=== PATIENT | male | born 1995 | race Caucasian/White ===

== ENCOUNTER 2020-01-04 18:46 | Emergency (ER) | payer BC ==
[~2020-01-04] VITALS: Ht 175.3 cm; Wt 103.9 kg
[2020-01-04 19:15] VITALS: BP 135/95
[2020-01-04] MEDS ORDERED: LIDOCAINE WITH 8.4% SOD BICARB 3 ML DISP.SYRIN. INJ ONE (19:30)
--- NOTE | 2020-01-04 20:29 | PHYS DOC ---
Past Medical History Past Medical History: No Pertinent History (MONICA CHAVEZ APRN) Past Surgical History: Other Additional Past Surgical Histo: ORAL (MONICA CHAVEZ APRN) Smoking Status: Current Some Day Smoker Alcohol Use: Occasionally (MONICA CHAVEZ APRN) General Adult EDM: Chief Complaint: LACERATION/AVULSION HPI: HPI: Patient is a 24 year old male who presents to the ED today with right hand lace ration, patient states he accidentally picked a sharp knife while cutting chicken. He is right-handed. (MONICA CHAVEZ APRN) Review of Systems: Review of Systems: Constitutional: Denies fever or chills. [] Musculoskeletal: Denies back pain or joint pain. [] Integument: Reports right hand laceration Neurologic: Denies headache, focal weakness or sensory changes. [] Psychiatric: Denies depression or anxiety. [] (MONICA CHAVEZ APRN) Heart Score: Risk Factors: Risk Factors: DM, Current or recent (<one month) smoker, HTN, HLP, family history of CAD, obesity. Risk Scores: Score 0 - 3: 2.5% MACE over next 6 weeks - Discharge Home Score 4 - 6: 20.3% MACE over next 6 weeks - Admit for Clinical Observation Score 7 - 10: 72.7% MACE over next 6 weeks - Early Invasive Strategies (MONICA CHAVEZ APRN) Current Medications: Current Medications Medications (Trade) Dose Ordered Sig/Florentin Start Time Stop Time Status Last Admin Dose Admin Lidocaine HCl (Buffered Lidocaine 1%) 6 ml 1X ONCE 01/04/20 19:30 01/04/20 19:33 DC 01/04/20 19:41 6 ML (MONICA CHAVEZ APRN) Allergies: Allergies: Allergies Coded Allergies Type Severity Reaction Last Updated Verified No Known Drug Allergies 01/04/20 No (MONICA CHAVEZ APRN) Physical Exam: PE: Constitutional: Well developed, well nourished, no acute distress, non-toxic appearance. [] Skin: Right ventral hand just below the index finger MIP joint with a laceration approximately 2 cm long, there is no obvious tendon involvement. Full range of motion to the right hand and fingers, adequate radial, median, ulnar sensation to the right hand. +2 right radial pulse. Cap refill less than 2 seconds right fingers. Back: No tenderness, no CVA tenderness. [] Extremities: No tenderness, no cyanosis, no clubbing, ROM intact, no edema. [] Neurologic: Alert and oriented X 3, normal motor function, normal sensory function, no focal deficits noted. [] Psychologic: Affect normal, judgement normal, mood normal. [] (MONICA CHAVEZ APRN) Current Patient Data: Vital Signs: Vital Signs Date Time Temp Pulse Resp B/P (MAP) Pulse Ox O2 Delivery O2 Flow Rate FiO2 01/04/20 19:15 98.7 107 17 135/95 (108) 96 Room Air 98.7 (MONICA CHAVEZ APRN) EKG: EKG: [] (MONICA CHAVEZ APRN) Radiology/Procedures: Radiology/Procedures: Laceration/Wound Repair Wound Location: Right hand Wound's Depth, Shape: Horizontal Wound Length (cm): Approximately 2 cm Wound Explored: clean Irrigated w/ Saline (ccs): 250 Betadine Prep?: Yes Anesthesia: 1% of buffered lidocaine Volume Anesthetic (ccs): Approximately 4 cc Wound Repaired With: Vicryl Suture Size/Type: 5.0/interrupted sutures Number of Sutures: 5 Progress : Wound was covered with nonstick dressing (MONICA CHAVEZ APRN) Course & Med Decision Making: Course & Med Decision Making Pertinent Labs and Imaging studies reviewed. (See chart for details) Patient has right hand laceration that was repaired by me as noted in procedures. Tetanus is up-to-date, wound care instructions or return precautions provided. (MONICA CHAVEZ APRN) Dragon Disclaimer: Dragon Disclaimer: This electronic medical record was generated, in whole or in part, using a voice recognition dictation system. (MONICA CHAVEZ APRN) Departure Departure Impression: Primary Impression: Laceration of right hand Qualified Codes: S61.411A - Laceration without foreign body of right hand, initial encounter Disposition: 01 HOME, SELF-CARE Condition: STABLE Referrals: NO PCP (PCP) Follow-up with your own doctor in 1 to 2 weeks as needed Patient Instructions: Laceration Care, Adult, [id number] Additional Instructions: You have dissolvable stitches, they will disappear on their own. Keep the area clean and dry. You can wash your hands with regular soap and water. Apply Neosporin to the laceration site twice a day. Monitor the laceration site for any site of infection to including increased redness, warmth or yellow drainage and return to the ED if they occur otherwise follow-up with your doctor as needed. Attending Signature Attending Signature I have reviewed the PA/PHARMACY CLINICAL COORDINATOR's note and plan of care. I was available for consultation as needed during the patient's visit in the emergency department. I agree with the clinical impression, plan, and disposition. (NORMA MIN DO) MONICA CHAVEZ APRN January 04, 2020 20:28 NORMA MIN DO January 05, 2020 08:16
== END 2020-01-04 20:40 | disposition home or self-care (01) ==
LOC: ER 18:46
DX: S61.411A Laceration without foreign body of right hand, initial encounter (principal); F17.200 Nicotine dependence, unspecified, uncomplicated; Z98.890 Other specified postprocedural states; W26.0XXA Contact with knife, initial encounter; Y93.89 Activity, other specified; Y92.89 Other specified places as the place of occurrence of the external cause; Y99.8 Other external cause status
CPT/HCPCS: 12001; 99282; J3490